=== PATIENT | female | born 1975 | race Caucasian/White ===

== ENCOUNTER 2019-05-12 04:20 | Emergency (ER) | payer OTHER ==
[~2019-05-12] VITALS: Ht 157.4 cm; Wt 79.5 kg
[2019-05-12] MEDS ORDERED: hydrALAZINE (APESOLINE) 20 MG/ML VIAL IV STA (04:49)
[2019-05-12] MEDS ORDERED: ASPIRIN 81 MG CHEW (CHILDREN'S ASA) PO ONE (05:00)
[2019-05-12 05:03] LABS: HEMATOCRIT 41 % (35-52); HEMOGLOBIN 13.5 G/DL (11.5-16.0); MEAN CORPUSCULAR HEMOGLOBIN 30 PG (25-34); MEAN CORPUSCULAR VOLUME 92 FL (80-99); WHITE BLOOD COUNT 8.9 10^3/uL (4.3-11.0)
[2019-05-12 05:04] LABS: BASOPHILS % (AUTO) 1 % (0-10); EOSINOPHILS # (AUTO) 0.2 10^3/uL (0.0-0.3); EOSINOPHILS % (AUTO) 2 % (0-10); LYMPHOCYTES # (AUTO) 4.5 X 10^3 (1.0-4.0); LYMPHOCYTES % (AUTO) 51 % (12-44); MEAN CORPUSCULAR HGB CONC 33 G/DL (32-36); MEAN PLATELET VOLUME 9.1 FL (7.4-10.4); MONOCYTES # (AUTO) 0.6 X 10^3 (0.0-1.0); MONOCYTES % (AUTO) 6 % (0-12); NEUTROPHILS # (AUTO) 3.5 X 10^3 (1.8-7.8); NEUTROPHILS % (AUTO) 40 % (42-75); PLATELET COUNT 288 10^3/uL (130-400); RED CELL DISTRIBUTION WIDTH 12.6 % (10.0-14.5)
[2019-05-12 05:05] LABS: PROTHROMBIN TIME PATIENT 13.2 SEC (12.2-14.7)
[2019-05-12 05:10] VITALS: BP 177/80
[2019-05-12 05:20] LABS: BILIRUBIN,URINE NEGATIVE (NEGATIVE); CLARITY,URINE CLEAR; COLOR,URINE YELLOW; GLUCOSE, URINE (UA) NEGATIVE (NEGATIVE); KETONES,URINE NEGATIVE (NEGATIVE); LEUKOCYTE ESTERASE ,URINE NEGATIVE (NEGATIVE); NITRITE,URINE NEGATIVE (NEGATIVE); PROTEIN,URINE NEGATIVE (NEGATIVE); SQUAMOUS EPITHELIAL CELL,UR 0-2 /HPF
[2019-05-12 05:21] LABS: HCG,QUALITATIVE URINE NEGATIVE (NEGATIVE)
[2019-05-12 05:22] LABS: CHLORIDE 101 MMOL/L (98-107); POTASSIUM 3.6 MMOL/L (3.6-5.0); SODIUM 141 MMOL/L (135-145)
[2019-05-12 05:23] LABS: ALANINE AMINOTRANSFERASE 14 U/L (0-55); ALBUMIN 4.4 GM/DL (3.2-4.5); ALKALINE PHOSPHATASE 71 U/L (40-136); BILIRUBIN,TOTAL 0.2 MG/DL (0.1-1.0); BUN/CREATININE RATIO 14; CALCIUM 9.2 MG/DL (8.5-10.1); CARBON DIOXIDE 29 MMOL/L (21-32); CREATININE SERUM 0.66 MG/DL (0.60-1.30); GFR ESTIMATED > 60; GLUCOSE 87 MG/DL (70-105); MAGNESIUM 2.3 MG/DL (1.6-2.4); TOTAL PROTEIN 7.7 GM/DL (6.4-8.2)
[2019-05-12 05:31] LABS: AMPHETAMINE SCREEN, URINE NEGATIVE (NEGATIVE); BARBITURATE SCREEN URINE NEGATIVE (NEGATIVE); BENZODIAZEPINES SCREEN URINE NEGATIVE (NEGATIVE); CANNABINOID SCREEN, URINE NEGATIVE (NEGATIVE); COCAINE SCREEN URINE NEGATIVE (NEGATIVE); METHADONE STAT NEGATIVE (NEGATIVE); METHAMPHETAMINE SCREEN URINE S NEGATIVE (NEGATIVE); OPIATE SCREEN URINE NEGATIVE (NEGATIVE); OXYCODONE STAT NEGATIVE (NEGATIVE); PROPOXYPHENE STAT NEGATIVE (NEGATIVE); TRICYCLIC ANTIDEPRESSANTS SCRE NEGATIVE (NEGATIVE)
--- NOTE | 2019-05-12 05:33 | ED General ---
General Chief Complaint: Chest Pain Stated Complaint: CHEST PAIN Nursing Triage Note: PT. STATED SHE HAS HAD CHEST PAIN SINCE LAST SATURDAY. PT. STATED HER PAIN IS MID STERNAL AND GOES CLEAR THROUGH TO HER BACK. PT. WAS BROUGHT IN BY THE POLICE IN HANDCUFFS. HANDCUFFS WERE REMOVED. Nursing Sepsis Screen: No Definite Risk Source of Information: Patient, Other (Intermediate Attendant) (ESTHER ZEPEDA MD) History of Present Illness Date Seen by Provider: May 12, 2019 Time Seen by Provider: 04:26 Initial Comments 43-year-old female presenting from the [facility] with complaints of hypertension and chest pain. She has been having substernal chest pain that has been going off and on since last . She also has a throbbing or pounding headache. She reports having a TIA or mild stroke in 2014 when she lived in [place]. She denies having any cardiac history. She has been told before that she needed to take aspirin and medicine for blood pressure but is not currently taking anything. At the residential they started her on lisinopril today and she has been taking Nexium more medicine for acid reflux. However today she was feeling that her symptoms and pain worse and more going down her left side of her arm and body. The substernal chest pain was going straight through to her back. They got worse overnight and off of the medical protocols that they have at the residential when she wasn't improving they brought her here to the emergency department. (ESTHER ZEPEDA MD) Allergies and Home Medications Allergies Coded Allergies: No Known Drug Allergies (Unverified , 05/12/19) Patient Home Medication List Home Medication List Reviewed: Yes (ESTHER ZEPEDA MD) Review of Systems Review of Systems Constitutional: No chills, No fever; malaise EENTM: No ear discharge, No blurred vision Respiratory: No cough Cardiovascular: see HPI, chest pain Gastrointestinal: no symptoms reported Genitourinary: no symptoms reported Musculoskeletal: other (chest pain radiates into her left arm) Skin: no symptoms reported Psychiatric/Neurological: Anxiety, Headache (throbbing right-sided headache) (ESTHER ZEPEDA MD) Past Ivbxjwp-Hwefvl-Dlijcn Hx Past Med/Social Hx: Reviewed Nursing Past Med/Soc Hx (ESTHER ZEPEDA MD) Patient Social History Recent Foreign Travel: No Contact w/Someone Who Travel: No Recent Infectious Disease Expo: No Recent Hopitalizations: No Physical Abuse: No Sexual Abuse: No Mistreated: No Fear: No (ESTHER ZEPEDA MD) Seasonal Allergies Seasonal Allergies: No (ESTHER ZEPEDA MD) Past Medical History Surgeries: Yes Hysterectomy Respiratory: No Cardiac: No Neurological: Yes TIA OPTICAL ADVISOR History: Hysterectomy Genitourinary: No Gastrointestinal: Yes Gastroesophageal Reflux Musculoskeletal: No Endocrine: No HEENT: No Cancer: No Psychosocial: No Integumentary: No Blood Disorders: No (ESTHER ZEPEDA MD) Physical Exam Vital Signs Vital Signs - First Documented 05/12/19 05/12/19 04:20 05:00 Temp 36.0 Pulse 66 Resp 18 B/P (MAP) 156/100 (118) Pulse Ox 100 O2 Delivery Room Air O2 Flow Rate 2.00 (RADHA MACKEY DO) Vital Signs Capillary Refill : Less Than 3 Seconds (ESTHER ZEPEDA MD) Height, Weight, BMI Height: '" Weight: lbs. oz. kg; 32.00 BMI Method: General Appearance: WD/WN, Anxious Eyes: Bilateral Eye PERRL, Bilateral Eye EOMI HEENT: Pharynx Normal Neck: Full Range of Motion, Normal Inspection, Non Tender, Supple, Carotid Bruit Respiratory: Lungs Clear, Normal Breath Sounds, No Accessory Muscle Use, No Respiratory Distress Cardiovascular: Regular Rate, Rhythm, No Murmur, Normal Peripheral Pulses Gastrointestinal: Normal Bowel Sounds, No Pulsatile Mass, Non Tender, Soft Rectal: Deferred Extremity: Normal Capillary Refill, No Pedal Edema Neurologic/Psychiatric: Alert, Oriented x3, No Motor/Sensory Deficits Skin: Normal Color, Warm/Dry (ESTHER ZEPEDA MD) Progress/Results/Core Measures Suspected Sepsis Recent Fever Within 48 Hours: No Infection Criteria Present: None New/Unexplained Altered Menta: No Sepsis Screen: No Definite Risk SIRS Temperature: Pulse: 68 Respiratory Rate: 18 Laboratory Tests 05/12/19 04:27: White Blood Count 8.9 Blood Pressure 177 /80 Mean: 112 Laboratory Tests 05/12/19 04:27: Creatinine 0.66, INR Comment 1.0, Platelet Count 288, Total Bilirubin 0.2 (ESTHER ZEPEDA MD) Results/Orders Lab Results Laboratory Tests Test 05/12/19 04:27 05/12/19 05:05 05/12/19 06:28 Range/Units White Blood Count 8.9 4.3-11.0 10^3/uL Red Blood Count 4.47 4.35-5.85 10^6/uL Hemoglobin 13.5 11.5-16.0 G/DL Hematocrit 41 35-52 % Mean Corpuscular Volume 92 80-99 FL Mean Corpuscular Hemoglobin 30 25-34 PG Mean Corpuscular Hemoglobin Concent 33 32-36 G/DL Red Cell Distribution Width 12.6 10.0-14.5 % Platelet Count 288 130-400 10^3/uL Mean Platelet Volume 9.1 7.4-10.4 FL Neutrophils (%) (Auto) 40 L 42-75 % Lymphocytes (%) (Auto) 51 H 12-44 % Monocytes (%) (Auto) 6 0-12 % Eosinophils (%) (Auto) 2 0-10 % Basophils (%) (Auto) 1 0-10 % Neutrophils # (Auto) 3.5 1.8-7.8 X 10^3 Lymphocytes # (Auto) 4.5 H 1.0-4.0 X 10^3 Monocytes # (Auto) 0.6 0.0-1.0 X 10^3 Eosinophils # (Auto) 0.2 0.0-0.3 10^3/uL Basophils # (Auto) 0.0 0.0-0.1 10^3/uL Prothrombin Time 13.2 12.2-14.7 SEC INR Comment 1.0 0.8-1.4 Activated Partial Thromboplast Time 31 24-35 SEC Sodium Level 141 135-145 MMOL/L Potassium Level 3.6 3.6-5.0 MMOL/L Chloride Level 101 98-107 MMOL/L Carbon Dioxide Level 29 21-32 MMOL/L Anion Gap 11 5-14 MMOL/L Blood Urea Nitrogen 9 7-18 MG/DL Creatinine 0.66 0.60-1.30 MG/DL Estimat Glomerular Filtration Rate > 60 BUN/Creatinine Ratio 14 Glucose Level 87 70-105 MG/DL Calcium Level 9.2 8.5-10.1 MG/DL Corrected Calcium 8.9 8.5-10.1 MG/DL Magnesium Level 2.3 1.6-2.4 MG/DL Total Bilirubin 0.2 0.1-1.0 MG/DL Aspartate Amino Transf (AST/SGOT) 15 5-34 U/L Alanine Aminotransferase (ALT/SGPT) 14 0-55 U/L Alkaline Phosphatase 71 40-136 U/L Troponin I 0.30 < 0.30 <0.30 NG/ML Pro-B-Type Natriuretic Peptide 124.9 H <75.0 PG/ML Total Protein 7.7 6.4-8.2 GM/DL Albumin 4.4 3.2-4.5 GM/DL Urine Color YELLOW Urine Clarity CLEAR Urine pH 7.0 5-9 Urine Specific [place] 1.010 L 1.016-1.022 Urine Protein NEGATIVE NEGATIVE Urine Glucose (UA) NEGATIVE NEGATIVE Urine Ketones NEGATIVE NEGATIVE Urine Nitrite NEGATIVE NEGATIVE Urine Bilirubin NEGATIVE NEGATIVE Urine Urobilinogen 0.2 < = 1.0 MG/DL Urine Leukocyte Esterase NEGATIVE NEGATIVE Urine RBC (Auto) NEGATIVE NEGATIVE Urine RBC NONE /HPF Urine WBC 2-5 /HPF Urine Squamous Epithelial Cells 0-2 /HPF Urine Crystals NONE /LPF Urine Bacteria NONE /HPF Urine Casts NONE /LPF Urine Mucus NEGATIVE /LPF Urine Culture Indicated NO Urine Test NEGATIVE NEGATIVE Urine Opiates Screen NEGATIVE NEGATIVE Urine Oxycodone Screen NEGATIVE NEGATIVE Urine Methadone Screen NEGATIVE NEGATIVE Urine Propoxyphene Screen NEGATIVE NEGATIVE Urine Barbiturates Screen NEGATIVE NEGATIVE Ur Tricyclic Antidepressants Screen NEGATIVE NEGATIVE Urine Phencyclidine Screen NEGATIVE NEGATIVE Urine Amphetamines Screen NEGATIVE NEGATIVE Urine Methamphetamines Screen NEGATIVE NEGATIVE Urine Benzodiazepines Screen NEGATIVE NEGATIVE Urine Cocaine Screen NEGATIVE NEGATIVE Urine Cannabinoids Screen NEGATIVE NEGATIVE (RADHA MACKEY DO) Medications Given in ED Current Medications Medications Dose Ordered Sig/Gisela Route Start Time Stop Time Status Last Admin Dose Admin Aspirin 324 mg ONCE ONCE PO 05/12/19 05:00 05/12/19 05:01 DC 05/12/19 04:56 324 MG (RADHA MACKEY DO) Vital Signs/I&O 05/12/19 05/12/19 05/12/19 04:20 05:00 05:10 Temp 36.0 Pulse 66 68 Resp 18 B/P (MAP) 156/100 (118) 177/80 (112) Pulse Ox 100 O2 Delivery Room Air Nasal Cannula O2 Flow Rate 2.00 (RADHA MACKEY DO) Vital Signs/I&O Capillary Refill : Less Than 3 Seconds (ESTHER ZEPEDA MD) Blood Pressure Mean: 112 POS Progress Note #1: Progress Note Obtain basic labs and electrocardiogram, chest x-ray and with her complaining of a headache as well as reporting a history of stroke and having hypertension will also obtain a CT of her head. Order a dose of hydralazine 10 mg IV to see if lowering her blood pressure alleviate any of her symptoms. Administer 324 aspirin as well. Progress Note #2: Time: 05:37 Progress Note Labs do not show any acute significant abnormality on her CBC or chemistry. Her troponin was 0.30. She did not have an elevated BNP. Her CT of her head was read out as normal without any acute abnormality by Dr. Rommel Last MD at 0516 AM. I did not appreciate any acute abnormality on her 1 view chest x-ray. Her electrocardiogram shows a sinus rhythm with out acute ST elevation. There is no prior tracing for comparison. Her blood pressure did respond with the dose of hydralazine. Will reevaluate the patient to see if her symptoms have improved. Progress Note #3: Time: 06:00 Progress Note Patient feels better and blood pressure improved after treatment. Will obtain a 2 hour troponin at 0630 to see that it is not climbing or worsening. Provided that is still the same or better she will be discharged to the residential to continue to work on her blood pressure and follow a Dash type diet. If it is climbing then she may need input from Cardiology for further treatment and evaluation. Care passed to Dr. Mackey at shift change pending this test result and final disposition. (ESTHER ZEPEDA MD) Progress Note : Progress Note @0600 - Pt care taken over from Dr. Zepeda at this time. Awaiting second troponin and if equal or less anticipated discharge home as the patient is now asymptomatic. @0710 - patient updated on lab and imaging results. She states she is feeling much better and her blood pressure has improved. She is denying any symptoms at this time. Encouraged continuing the newly prescribed lisinopril and returning to the emergency department for new or worsening symptoms. Advise following up with the residential provider within the next 1-2 days. The patient expresses verbal understanding and agreement with the plan. She is stable for discharge at this time. (RADHA MACKEY DO) ECG Initial ECG Impression Date: May 12, 2019 Initial ECG Impression Time: 04:20 Initial ECG Rhythm: Normal Sinus Initial ECG Comparisson: No Previous ECG Available Comment Sinus rhythm with a heart rate is 60 bpm. TN interval 567 ms. QT interval 431 ms and a QT corrected interval 431 ms. She has no acute ST elevation. There is no prior tracing available for comparison. (ESTHER ZEPEDA MD) Diagnostic Imaging Diagonstic Imaging: CT Plain Films/CT/US/NM/MRI: head Comments Impression normal head and brain CT read by radiologist Dr. Rommel Last MD at 5:16 AM and faxed at 5:23 AM Reviewed: Reviewed Night [facility] Study Diagonstic Imaging: Xray Plain Films/CT/US/NM/MRI: chest Comments On my review of her 1 view chest x-ray she has no acute abnormality and no cardiomegaly or pleural effusion or infiltrate. (ESTHER ZEPEDA MD) Transfer of Care Transfer of Care Time: 06:00 Care transferred to: Dr. Mackey (ESTHER ZEPEDA MD) Departure Impression Primary Impression: Chest pain Additional Impressions: Hypertension Headache Disposition: 21 DIS/[address]/LAW ENFORCE Condition: Stable Transfer Method of Transfer: Law Enforcement (RADHA MACKEY DO) Departure-Patient Inst. Decision time for Depature: 07:12 (RADHA MACKEY DO) Referrals: NO,LOCAL PHYSICIAN (PCP) Primary Care Physician AARON CHRISTIE MD [facility] [place] Patient Instructions: Chest Pain, Headache, Adult, High Blood Pressure in Adults Add. Discharge Instructions: Continue to take her prescribed lisinopril. Return to the emergency Department immediately for new or worsening symptoms. Follow-up with your doctor in the next 1-2 days. ESTHER ZEPEDA MD May 12, 2019 05:33 RADHA YEPEZ DO May 12, 2019 07:13 POS
[2019-05-12 07:25] VITALS: BP 144/85
--- NOTE | 2019-05-12 07:45 | Diagnostic Imaging Report ---
INDICATION: Chest pain. Frontal view of the chest was obtained with no prior studies for comparison. FINDINGS: Heart size is normal. No mediastinal widening. Midline trachea. The lungs are clear. No effusion or pneumothorax. IMPRESSION: 1. No acute findings in the chest. Dictated by: Dictated on workstation # [id number]
--- NOTE | 2019-05-12 07:48 | Diagnostic Imaging Report ---
PROCEDURE: CT head without contrast. TECHNIQUE: Multiple contiguous axial images were obtained through the brain without the use of intravenous contrast. Auto Exposure Controls were utilized during the CT exam to meet ALARA standards for radiation dose reduction. INDICATION: Chest pain x4 days, history of TIA. No prior studies for comparison. CT HEAD: The ventricles are normal in size, shape and position. No midline shift or mass effect. No focal parenchymal lesion. No intra-axial or extra-axial masses. Visualized paranasal sinuses and mastoids are clear. No acute skull findings. IMPRESSION: 1. No acute intracranial abnormality. No hemorrhage, infarct or mass. Agree with preliminary teleradiology report. Dictated by: Dictated on workstation # [id number]
== END 2019-05-12 07:25 ==
LOC: ER FS 04:26
DX: R07.9 Chest pain, unspecified (principal); I10 Essential (primary) hypertension; R51 Headache; K21.9 Gastro-esophageal reflux disease without esophagitis; Z90.710 Acquired absence of both cervix and uterus; Z86.73 Personal history of transient ischemic attack (TIA), and cerebral infarction without residual deficits
CPT/HCPCS: 36415; 70450; 71045; 80053; 80306; 81000; 83735; 83880; 84484; 84703; 85025; 85610; 85730; 93005; 93041; 96374